=== PATIENT | female | born 2005 | race Two or more races ===

== ENCOUNTER 2024-02-05 10:41 | Emergency (ER) | payer MEDICAID, OTHER ==
[~2024-02-05] VITALS: Ht 172.7 cm; Wt 98.9 kg
[2024-02-05 11:40] VITALS: BP 118/53; PULSE 108; RESP 16; TEMP 97.9; O2SAT 95
[2024-02-05 11:44] LABS: Basophils # (auto) 0.1 10 ^3/uL (0-0.2); Basophils % (auto) 0.6 % (0.0-2.0); Eosinophils # (auto) 0.3 10 ^3/uL (0-0.8); Eosinophils % (auto) 1.6 % (0.0-7.0); Hematocrit 40.3 % (36.0-46.0); Hemoglobin 13.4 g/dL (12.2-16.2); Lymphocytes # (auto) 2.5 10 ^3/uL (0.4-5.4); Lymphocytes % (auto) 15.6 % (10.0-50.0); Mean Corpuscular Hemoglobin 27.6 pg (28.0-32.0); Mean Corpuscular Hgb Conc. 33.4 g/dL (32.0-36.0); Mean Corpuscular Volume 82.7 fL (80.0-100.0); Monocytes # (auto) 1.1 10 ^3/uL (0-1.3); Monocytes % (auto) 6.6 % (0.0-12.0); Neutrophils # (auto) 12.3 10 ^3/uL (1.6-8.6); Neutrophils % (auto) 75.6 % (37.0-80.0); Nucleated Red Blood Cells % 0.1 %; Red Blood Cells 4.87 10^6/uL (4.0-5.20); Red Cell Distribution Width 14.1 % (11.8-14.3); White Blood Cell 16.2 10^3/uL (4.4-10.8)
[2024-02-05 12:06] LABS: Chloride 102 mmol/L (98-107); Potassium 4.1 mmol/L (3.5-5.1); Sodium 136 mmol/L (136-145)
[2024-02-05 12:07] LABS: Anion Gap 6 (5-15); Calcium 9.9 mg/dL (8.5-10.1); Carbon Dioxide 28 mmol/L (20-30)
[2024-02-05 12:12] LABS: BUN/Creatinine Ratio 10.8 (10.0-20.0); Blood Urea Nitrogen 7 mg/dL (9-23); Glucose 100 mg/dL (74-106)
[2024-02-05 12:15] LABS: Urine Bacteria MANY /hpf (None Seen); Urine Blood TRACE /uL (Negative); Urine Clarity Ex.Turbid (Clear); Urine Color Colorless (Yellow); Urine Mucus FEW (None Seen); Urine Protein, UAD TRACE (Negative); Urine Specific Gravity 1.018 (1.001-1.035); Urine Urobilinogen Normal (Negative); Urine WBC 202 /hpf (0 - 5); Urine WBC Clumps PRESENT /hpf (None Seen); Urine pH 6.5 (5.0-9.0)
[2024-02-05] MEDS ORDERED: KETOROLAC TROMETH 60MG/2ML VIAL IM ONE (12:15)
[2024-02-05 13:05] LABS: Rapid Strep A Screen-Throat Positive
[2024-02-05] MEDS ORDERED: NITR-87 PO (13:24)
[2024-02-05] MEDS ORDERED: NAPR-746 PO (13:24)
[2024-02-05] MEDS ORDERED: LIDO2SOL26 MT (13:24)
[2024-02-05] MEDS: PENICILLIN G BENZ 1,200,000 UNITS/2 ML SYRG IM ONE (14:17)
[2024-02-05] MEDS: DexAMETHasone SOD PHOS 10MG/1ML VIAL INJ IM ONE (14:18)
[2024-02-05] MEDS: KETOROLAC TROMETH 60MG/2ML VIAL IM ONE (14:18)
== END 2024-02-05 14:26 | disposition home or self-care (01) ==
LOC: ER 10:41
DX: J02.0 Streptococcal pharyngitis (principal); B95.4 Other streptococcus as the cause of diseases classified elsewhere; N30.90 Cystitis, unspecified without hematuria
CPT/HCPCS: 36415; 74018; 80048; 81001; 85025; 87880; 96372; 99284; J0561; J1100; J1885